=== PATIENT | female | born 1965 | race Caucasian/White ===

== ENCOUNTER → 2020-09-05 | Day surgery (SDC) | payer OTHER ==
[~2020-09-05] MED LIST: ACAMPROSATE CA333 MG PO; CARVEDILOL3.125 MG PO; DESYREL150 MG PO; FLEXERIL PO; GABAPENTIN 100100 MG PO; LEVOTHYROXINE75 MCG PO; MECLIZINE HCL25 MG PO; PRINIVIL40 MG PO; PROTONIX40 M2 PO; SERTRALINE HCL100 MG PO; VITAMIN B-12100 MC1 PO
--- NOTE | ~2020-09-05 | O ---
[facility] Teresa Bang [place] [address] OPERATIVE REPORT Name: ZAIRA CERNA Room #: [facility].#: [id number] Admission: 09/05/20 Attend Phys: Jorge Alberto Stevens MD Discharge: Date of : 63 Report #: [id number] THIS REPORT FOR: cc: DASH PALOMINO MD,DASH Stevens,Jorge Alberto Colvin MD ~ DOC #: [id number] cc: Dash Stevens MD DATE OF SERVICE: 09/05/2020 SURGEON: Jorge Alberto Stevens MD STOCK SUPERVISOR: None. PREOPERATIVE DIAGNOSIS: Bilateral upper lid dermatochalasia with superior visual field defect. POSTOPERATIVE DIAGNOSIS: Bilateral upper lid dermatochalasia with superior visual field defect. OPERATION PERFORMED: Bilateral upper lid functional blepharoplasty. ANESTHESIA: Local with IV sedation. COMPLICATIONS: None. 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 Visual field testing demonstrates dense superior visual defects. Retesting with the upper lid elevated shows an improvement in visual field loss of over 30% and in excess of 12 degrees. The current procedures are undertaken in order to improve the patient's visual function. Informed consent was obtained to include but not limited to the loss of vision, bleeding, infection, scarring, failure to improve the problem and need for further surgery. DESCRIPTION OF OPERATION: The patient was taken to the operating room, where 2% Xylocaine with epinephrine mixed with equal parts of 0.75% Marcaine with Wydase was administered transcutaneously to each upper lid. The patient was then prepped and draped in the usual sterile fashion and a skin-marking pen was then utilized to outline an upper lid crease that was symmetrical on each side. Graefe forceps were then used to quantitate the redundant upper lid skin and it was similarly outlined. The incisions were then made with Kavitha scissors and [facility] [address] [address] OPERATIVE REPORT Name: ZAIRA CERNA Room #: [facility].#: [id number] Admission: 09/05/20 Attend Phys: Jorge Alberto Stevens MD Discharge: Date of : 63 Report #: [id number] a skin-muscle flap removed from each side with high-temp cautery. Hemostasis was achieved with the monopolar cautery as it was throughout the case. The orbital septum was then identified and the central and medial fat pads were inspected. The redundant soft tissue was then sculpted with the monopolar cautery. The upper lid crease was then reformed with tightening of the pretarsal orbicularis muscle. The upper lid crease was then further reformed with multiple interrupted 6-0 chromic sutures. The skin was then closed with a running 6-0 plain gut suture. The wound was then cleaned and dressed with ophthalmic antibiotic ointment and a nonstick dressing. The patient was transported to the recovery area, where cold compresses were applied, having tolerated the procedure well with no anesthetic or operative complications being noted. MD FLIP UpW/TITO By: [id number] Jorge Alberto Stevens MD /nt
[2020-09-05 10:46] VITALS: BP 112/70
== END | disposition home or self-care (01) ==
LOC: OR 08:40
PROVIDERS: ATTEND Ophthalmology
DX: H02.834 Dermatochalasis of left upper eyelid (principal); H02.831 Dermatochalasis of right upper eyelid; H53.462 Homonymous bilateral field defects, left side; H53.461 Homonymous bilateral field defects, right side; K21.9 Gastro-esophageal reflux disease without esophagitis; F31.9 Bipolar disorder, unspecified; F41.9 Anxiety disorder, unspecified; Z98.890 Other specified postprocedural states; Z79.899 Other long term (current) drug therapy; Z86.19 Personal history of other infectious and parasitic diseases; Z86.73 Personal history of transient ischemic attack (TIA), and cerebral infarction without residual deficits; Z87.891 Personal history of nicotine dependence
CPT/HCPCS: 50010; 50101; 50386; 50398; 51636; 56531; 62110; 62850; 70005